=== PATIENT | male | born 1980 | race Caucasian/White ===

== ENCOUNTER 2016-12-14 20:01 | Emergency (ER) | payer BC ==
[~2016-12-14 20:01] MED LIST: LEXAPRO; ZYLOPRIM
[2016-12-14] MEDS ORDERED: ALLOPURINOL300 MG PO (20:18)
[2016-12-14] MEDS ORDERED: COLCRYS0.6 M2 PO (20:19)
== END 2016-12-14 20:25 | disposition home or self-care (01) ==
LOC: SED 20:01
DX: M10.9 Gout, unspecified (principal); F17.210 Nicotine dependence, cigarettes, uncomplicated; Z98.890 Other specified postprocedural states; Z79.899 Other long term (current) drug therapy
CPT/HCPCS: 96372; 99284; J1885